=== PATIENT | female | born 1955 | race Caucasian/White ===

== ENCOUNTER 2022-05-18 16:45 | Outpatient (CLI) | payer BC, SELFPAY | END 2022-05-18 16:46 | disposition home or self-care (01) | LOC: LKVREF 05-20 15:39 | PROVIDERS: Visit Provider Nurse Practitioner Family | DX: R30.0 Dysuria (principal); N39.0 Urinary tract infection, site not specified | CPT/HCPCS: 87086 ==

== ENCOUNTER 2022-06-08 12:16 | Outpatient (CLI) | payer BC, SELFPAY | END 2022-06-08 12:17 | disposition home or self-care (01) | LOC: LKVREF 06-14 10:44 | PROVIDERS: Visit Provider Student in an Organized Health Care Education/Training Program | DX: R30.0 Dysuria (principal); R32 Unspecified urinary incontinence | CPT/HCPCS: 87086 ==